=== PATIENT | male | born 1950 | race African-American/Black ===

== ENCOUNTER 2019-01-14 18:58 | Inpatient (IN) ==
[2019-01-14] MEDS ORDERED: SODIUM CHLORIDE 0.9% 1,450 ML IV ONE (19:31)
[2019-01-14] MEDS ORDERED: PANTOPRAZOLE 40 MG VIAL IV STA (19:31)
[2019-01-14] MEDS ORDERED: ONDANSETRON 4 MG/2 ML VIAL IV STA (19:31)
[2019-01-14 19:52] LABS: Basophils # 0.1 10*3/uL (0.0-0.2); Basophils % 1.2 % (0.0-0.8); Hematocrit 43.3 VOL% (42.0-52.0); Hemoglobin 14.3 GM/DL (14.0-18.0); Immature Granulocytes % 0.3 %; Immature Granulocytes Absolute 0.02 #; Lymphocytes # 0.6 10*3/uL (1.4-4.0); Lymphocytes % 10.1 % (21.2-54.2); Mean Corpuscular Volume 81.9 FL (87-102); Mean Platelet Volume 10.6 FL (9.6-12.0); Monocytes % 12.5 % (1.7-12.7); Neutrophils % 75.9 % (38.7-73.9); Platelet Count 234 T/CUMM (130-400); Red Blood Count 5.29 MC/CUMM (3.8-5.5); Red Cell Distribution Width 15.4 % (9.3-17.3); White Blood Count 5.9 T/CUMM (4-12)
[2019-01-14 20:25] LABS: Alanine Aminotransferase 21 U/L (16-61); Albumin 2.6 G/DL (3.4-5.0); Alkaline Phosphatase 82 U/L (45-117); Amylase 77 U/L (25-115); Aspartate Amino Transferase 18 U/L (0-37); Blood Urea Nitrogen 86 MG/DL (7-18); Calcium 8.3 MG/DL (8.5-10.1); Estimated Glom Filtration Rate 18 ML/MIN; Glucose 120 MG/DL (74-106); Osmolality,Calculated 290.5 MOS/KG (273-304); Total Protein 7.3 G/DL (6.4-8.3); Troponin I < 0.015 NG/ML (0.00-0.045)
[2019-01-14 20:36] LABS: Band Neutrophils 23 % (0-10); Lymphocytes 10 % (20-55); Metamyelocytes 10 %; Myelocytes 1 %; Segmented Neutrophils 49 % (50-85); Total Cells Counted 100
[2019-01-14 20:37] LABS: Microcytosis 1+; Platelet Estimate Normal
[2019-01-14 20:48] LABS: PT Patient Result 10.8 SECS (9.6-12.2); Partial Thromboplastin Time 33.2 SECS (20.8-36.0)
[2019-01-14] MEDS ORDERED: PIPERACILLIN/TAZOBACTAM 3,375 MG VIAL IV ONE (20:59)
[2019-01-14] MEDS: PIPERACILLIN/TAZOBACTAM 3,375 MG in SODIUM CHLORIDE 0.9% 100 ML IV SCH (21:05)
[2019-01-14] MEDS ORDERED: ONDANSETRON 4 MG/2 ML VIAL IV PRN (21:41)
[2019-01-14] MEDS ORDERED: ACETAMINOPHEN 325 MG TABLET PO PRN (21:41)
[2019-01-14] MEDS ORDERED: ALBUTEROL 2.5 MG/3 ML NEB RESP TX PRN (21:47)
[2019-01-14 22:09] LABS: Amorphous Crystals,Urine Occasional /HPF (Few); Apearance,Urine CLOUDY (Clear); Bilirubin,Urine Negative (Negative); Blood, Urine Moderate mg/dL (Negative); Glucose,Urine (UA) Negative (Negative); Hyaline Casts,Urine 62 /LPF (0-3); Ketones,Urine Negative (Negative); Mucus,Urine Occasional /LPF (Occasional); Nitrite,Urine Negative (Negative); Protein,Urine 30 MG/DL; RBC,Urine 9 /HPF (0-4); Sperm,Urine Occasional /HPF (Negative); Squamous Epithelial Cell,Urine Occasional /HPF (0-10); Urine Color Amber (Yellow); Urine Specific Gravity 1.017 (1.001-1.035); Urine Urobilinogen < 2.0 EU/DL (0.2-1.0); WBC,Urine 4 /HPF (0-6)
[2019-01-15 01:57] LABS: Albumin 2.2 G/DL (3.4-5.0); Bilirubin,Total 1.5 MG/DL (0.2-1.0); Calcium 7.9 MG/DL (8.5-10.1); Osmolality,Calculated 288.7 MOS/KG (273-304); Total Protein 6.5 G/DL (6.4-8.3)
[2019-01-15 02:01] LABS: Basophils # 0.1 10*3/uL (0.0-0.2); Eosinophils % 0.2 % (0.00-10.9); Hemoglobin 13.2 GM/DL (14.0-18.0); Immature Granulocytes % 0.3 %; Immature Granulocytes Absolute 0.02 #; Lymphocytes # 0.4 10*3/uL (1.4-4.0); Lymphocytes % 6.4 % (21.2-54.2); Mean Corpuscular HGB Conc 34.7 GM/DL (32-36); Mean Corpuscular Volume 79.8 FL (87-102); Mean Platelet Volume 11.2 FL (9.6-12.0); Neutrophils % 74.1 % (38.7-73.9); Platelet Count 204 T/CUMM (130-400); Red Blood Count 4.76 MC/CUMM (3.8-5.5); Red Cell Distribution Width 15.2 % (9.3-17.3); White Blood Count 6.1 T/CUMM (4-12)
[2019-01-15 02:41] LABS: Band Neutrophils 29 % (0-10); Lymphocytes 11 % (20-55); Myelocytes 1 %; Segmented Neutrophils 40 % (50-85); Total Cells Counted 100
[2019-01-15 02:42] LABS: Acanthocytes Few; Anisocytosis 1+
[2019-01-15 02:43] LABS: Platelet Estimate Normal
[2019-01-15] MEDS: LACTATED RINGERS 1,000 ML IV SCH ×2 (02:52→08:58)
[2019-01-15] MEDS ORDERED: SODIUM CHLORIDE 0.9% 1,000 ML IV ONE ×2 (04:47→09:10)
[2019-01-15] MEDS: PIPERACILLIN/TAZOBACTAM 3,375 MG in SODIUM CHLORIDE 0.9% 100 ML IV SCH (05:30)
[2019-01-15] MEDS: HEPARIN 5,000 UNIT/1 ML VIAL SUBCUT SCH ×2 (05:31→16:25)
[2019-01-15] MEDS: TIMOLOL 0.5% OPH SOLN 5 ML BOTTLE BOTH EYES SCH ×2 (08:57→20:47)
[2019-01-15] MEDS: FLUTICASONE 50 MCG NASAL SPRAY 16 GM BOTTLE BOTH NARES SCH (08:58)
[2019-01-15] MEDS: PANTOPRAZOLE 40 MG VIAL IV SCH ×2 (08:58→20:46)
[2019-01-15] MEDS: CIPROFLOXACIN INJ 400 MG in PREMIX 1 EACH IV SCH (10:11)
[2019-01-15] MEDS: SODIUM CHLORIDE 0.9% 1,000 ML IV SCH ×2 (12:23→17:18)
[2019-01-15] MEDS: metroNIDAZOLE INJ 500 MG in PREMIX 1 EACH IV SCH ×3 (12:39→21:29)
[2019-01-15] MEDS: LATANOPROST 0.005% OPH SOLN 2.5 ML BOTTLE BOTH EYES SCH (20:47)
[2019-01-16] MEDS: SODIUM CHLORIDE 0.9% 1,000 ML IV SCH ×2 (02:49→07:23)
[2019-01-16] MEDS: metroNIDAZOLE INJ 500 MG in PREMIX 1 EACH IV SCH ×4 (04:43→23:08)
[2019-01-16] MEDS: HEPARIN 5,000 UNIT/1 ML VIAL SUBCUT SCH ×2 (04:43→16:14)
[2019-01-16 06:38] LABS: Basophils # 0.1 10*3/uL (0.0-0.2); Basophils % 0.7 % (0.0-0.8); Eosinophils % 0.1 % (0.00-10.9); Hematocrit 33.9 VOL% (42.0-52.0); Hemoglobin 11.4 GM/DL (14.0-18.0); Immature Granulocytes Absolute 0.16 #; Lymphocytes # 0.6 10*3/uL (1.4-4.0); Lymphocytes % 3.6 % (21.2-54.2); Mean Corpuscular HGB Conc 33.6 GM/DL (32-36); Mean Corpuscular Volume 80.3 FL (87-102); Monocytes % 14.9 % (1.7-12.7); Neutrophils % 79.7 % (38.7-73.9); Platelet Count 203 T/CUMM (130-400); Red Blood Count 4.22 MC/CUMM (3.8-5.5); Red Cell Distribution Width 15.4 % (9.3-17.3)
[2019-01-16 07:07] LABS: Band Neutrophils 40 % (0-10); Lymphocytes 2 % (20-55); Platelet Estimate Normal; Segmented Neutrophils 44 % (50-85); Total Cells Counted 100
[2019-01-16 07:08] LABS: Anisocytosis 2+; Macrocytosis Slight; Poikilocytosis 2+
[2019-01-16 07:09] LABS: Burr Cells 1+
[2019-01-16 07:19] LABS: Calcium 7.4 MG/DL (8.5-10.1); Osmolality,Calculated 288.1 MOS/KG (273-304); Thyroid Stimulating Hormone 1.82 uIU/ml (0.358-3.74)
[2019-01-16] MEDS: FLUTICASONE 50 MCG NASAL SPRAY 16 GM BOTTLE BOTH NARES SCH (08:47)
[2019-01-16] MEDS: SODIUM CHLOR 0.9% KCL 40 MEQ 40 MEQ/1,000 ML BAG IV SCH ×2 (08:51→23:08)
[2019-01-16] MEDS: TIMOLOL 0.5% OPH SOLN 5 ML BOTTLE BOTH EYES SCH ×2 (08:52→20:51)
[2019-01-16] MEDS: PANTOPRAZOLE 40 MG VIAL IV SCH ×2 (08:52→20:51)
[2019-01-16] MEDS: POTASSIUM CHLORIDE 20 MEQ TABLET PO PRN ×4 (08:52→16:37)
[2019-01-16] MEDS: CIPROFLOXACIN INJ 400 MG in PREMIX 1 EACH IV SCH ×3 (08:53→20:59)
[2019-01-16] MEDS ORDERED: SODIUM PHOSPHATE INJ 30 MMOL in SODIUM CHLORIDE 0.9% 250 ML IV ONE (15:00)
[2019-01-16] MEDS: LATANOPROST 0.005% OPH SOLN 2.5 ML BOTTLE BOTH EYES SCH (20:51)
[2019-01-17] MEDS: metroNIDAZOLE INJ 500 MG in PREMIX 1 EACH IV SCH ×3 (04:52→22:09)
[2019-01-17] MEDS: HEPARIN 5,000 UNIT/1 ML VIAL SUBCUT SCH ×2 (05:45→17:39)
[2019-01-17] MEDS: SODIUM CHLOR 0.9% KCL 40 MEQ 40 MEQ/1,000 ML BAG IV SCH (05:45)
[2019-01-17 05:49] LABS: Calcium 7.5 MG/DL (8.5-10.1); Osmolality,Calculated 284.8 MOS/KG (273-304)
[2019-01-17] MEDS ORDERED: LACTATED RINGERS 1,000 ML IV SCH (08:00)
[2019-01-17] MEDS ORDERED: ONDANSETRON 4 MG/2 ML VIAL ONE (09:00)
[2019-01-17] MEDS ORDERED: ETOMIDATE 20 MG/10 ML VIAL IV ONE (09:00)
[2019-01-17] MEDS ORDERED: PROPOFOL 200 MG/20 ML VIAL IV ONE (09:00)
[2019-01-17] MEDS ORDERED: LIDOCAINE 2% 5 ML VIAL ONE (09:00)
[2019-01-17] MEDS ORDERED: SODIUM PHOSPHATE INJ 30 MMOL in SODIUM CHLORIDE 0.9% 250 ML IV ONE ×2 (11:00→20:00)
[2019-01-17] MEDS: SODIUM CHLORIDE 0.9% 1,000 ML IV SCH (11:40)
[2019-01-17] MEDS: PANTOPRAZOLE 40 MG VIAL IV SCH (11:41)
[2019-01-17] MEDS: TIMOLOL 0.5% OPH SOLN 5 ML BOTTLE BOTH EYES SCH ×2 (11:44→21:41)
[2019-01-17] MEDS: FLUTICASONE 50 MCG NASAL SPRAY 16 GM BOTTLE BOTH NARES SCH (11:45)
[2019-01-17] MEDS: CIPROFLOXACIN INJ 400 MG in PREMIX 1 EACH IV SCH (15:51)
[2019-01-17] MEDS: LATANOPROST 0.005% OPH SOLN 2.5 ML BOTTLE BOTH EYES SCH (21:40)
[2019-01-17] MEDS: PANTOPRAZOLE 40 MG TABLET PO SCH (21:40)
[2019-01-17] MEDS: POTASSIUM PHOS/SOD PHOS POWDER 250 MG PACK PO SCH (21:40)
[2019-01-18] MEDS: CIPROFLOXACIN INJ 400 MG in PREMIX 1 EACH IV SCH (03:00)
[2019-01-18] MEDS: metroNIDAZOLE INJ 500 MG in PREMIX 1 EACH IV SCH ×2 (04:02→09:45)
[2019-01-18] MEDS: HEPARIN 5,000 UNIT/1 ML VIAL SUBCUT SCH (04:37)
[2019-01-18 05:43] LABS: Basophils % 0.1 % (0.0-0.8); Eosinophils % 0.3 % (0.00-10.9); Hematocrit 32.2 VOL% (42.0-52.0); Hemoglobin 10.8 GM/DL (14.0-18.0); Immature Granulocytes Absolute 0.12 #; Lymphocytes # 1.3 10*3/uL (1.4-4.0); Lymphocytes % 11.4 % (21.2-54.2); Mean Corpuscular HGB Conc 33.5 GM/DL (32-36); Mean Corpuscular Volume 81.5 FL (87-102); Mean Platelet Volume 10.9 FL (9.6-12.0); Monocytes % 11.6 % (1.7-12.7); Neutrophils % 75.6 % (38.7-73.9); Platelet Count 206 T/CUMM (130-400); Red Blood Count 3.95 MC/CUMM (3.8-5.5); Red Cell Distribution Width 16.1 % (9.3-17.3); White Blood Count 11.6 T/CUMM (4-12)
[2019-01-18] MEDS: SODIUM CHLORIDE 0.9% 1,000 ML IV SCH (05:56)
[2019-01-18 06:04] LABS: Calcium 7.5 MG/DL (8.5-10.1); Osmolality,Calculated 279.3 MOS/KG (273-304)
[2019-01-18 06:12] LABS: Lymphocytes 12 % (20-55); Segmented Neutrophils 76 % (50-85); Total Cells Counted 100
[2019-01-18 06:13] LABS: Hypochromasia Slight; Platelet Estimate Normal
[2019-01-18 06:15] LABS: Acanthocytes Few; Burr Cells 1+; Poikilocytosis 1+; Schistocytes Few
[2019-01-18] MEDS: POTASSIUM PHOS/SOD PHOS POWDER 250 MG PACK PO SCH (08:17)
[2019-01-18] MEDS: TIMOLOL 0.5% OPH SOLN 5 ML BOTTLE BOTH EYES SCH (08:17)
[2019-01-18] MEDS: FLUTICASONE 50 MCG NASAL SPRAY 16 GM BOTTLE BOTH NARES SCH (08:17)
[2019-01-18] MEDS: POTASSIUM CHLORIDE 20 MEQ TABLET PO PRN ×2 (08:17→10:23)
[2019-01-18] MEDS: PANTOPRAZOLE 40 MG TABLET PO SCH (08:17)
[2019-01-18] MEDS ORDERED: POTASSIUM BICARB EFFERVESCENT 25 MEQ TABLET PO ONE (10:32)
[2019-01-18 12:51] VITALS: BP 138/76
== END 2019-01-18 13:30 | disposition home health service (06) | DRG 683 ==
LOC: EDUNIT# → N.ED 18:58 → N.EDINP 21:41 → N.3E 23:53
PROVIDERS: ADMIT Internal Medicine; ATTEND Internal Medicine

== ENCOUNTER 2020-04-17 02:27 | Inpatient (IN) ==
[2020-04-17 03:00] LABS: Basophils # 0.1 10*3/uL (0.0-0.2); Basophils % 0.4 % (0.0-0.8); Eosinophils % 0.2 % (0.00-10.9); Hematocrit 48.3 VOL% (42.0-52.0); Hemoglobin 16.4 GM/DL (14.0-18.0); Immature Granulocytes % 0.6 %; Immature Granulocytes Absolute 0.08 #; Lymphocytes # 1.1 10*3/uL (1.4-4.0); Lymphocytes % 9.1 % (21.2-54.2); Mean Corpuscular Volume 80.8 FL (87-102); Mean Platelet Volume 10.8 FL (9.6-12.0); Monocytes % 13.3 % (1.7-12.7); Neutrophils % 76.4 % (38.7-73.9); Platelet Count 244 T/CUMM (130-400); Red Blood Count 5.98 MC/CUMM (3.8-5.5); Red Cell Distribution Width 15.8 % (9.3-17.3); White Blood Count 12.4 T/CUMM (4-12)
[2020-04-17] MEDS ORDERED: SODIUM CHLORIDE 0.9% 1,000 ML IV STA (03:01)
[2020-04-17 03:59] LABS: Albumin 3.3 G/DL (3.4-5.0); Bilirubin,Total 0.7 MG/DL (0.2-1.0); Calcium 9.9 MG/DL (8.5-10.1)
[2020-04-17 04:00] LABS: Osmolality,Calculated 292.8 MOS/KG (273-304); Potassium 3.8 MMOL/L (3.5-5.1)
[2020-04-17 04:08] LABS: Band Neutrophils 1 % (0-10); Hypochromasia Slight; Lymphocytes 8 % (20-55); Microcytosis 1+; Platelet Estimate Normal; Segmented Neutrophils 82 % (50-85); Total Cells Counted 100
[2020-04-17 04:09] LABS: Polychromasia Slight; Tear Drop Cells Few
[2020-04-17] MEDS ORDERED: DEXTROSE 50% 25 GM/50 ML VIAL IV PRN (04:25)
[2020-04-17] MEDS ORDERED: GLUCAGON 1 MG VIAL IM PRN (04:25)
[2020-04-17] MEDS ORDERED: ACETAMINOPHEN 325 MG TABLET PO PRN (04:25)
[2020-04-17] MEDS ORDERED: ENOXAPARIN 30 MG/0.3 ML SYRINGE SUBCUT SCH (06:00)
[2020-04-17] MEDS: SODIUM CHLORIDE 0.9% 1,000 ML IV SCH ×2 (08:30→18:02)
[2020-04-17 08:34] LABS: Basophils % 0.2 % (0.0-0.8); Hematocrit 48.1 VOL% (42.0-52.0); Hemoglobin 15.8 GM/DL (14.0-18.0); Immature Granulocytes % 1.1 %; Immature Granulocytes Absolute 0.13 #; Lymphocytes % 7.8 % (21.2-54.2); Mean Corpuscular HGB Conc 32.8 GM/DL (32-36); Mean Corpuscular Volume 82.4 FL (87-102); Mean Platelet Volume 11.1 FL (9.6-12.0); Monocytes % 12.1 % (1.7-12.7); Neutrophils % 78.8 % (38.7-73.9); Platelet Count 246 T/CUMM (130-400); Red Blood Count 5.84 MC/CUMM (3.8-5.5); Red Cell Distribution Width 15.8 % (9.3-17.3); White Blood Count 12.2 T/CUMM (4-12)
[2020-04-17] MEDS: ONDANSETRON 4 MG/2 ML VIAL IV PRN (08:35)
[2020-04-17 08:51] LABS: Albumin 3.1 G/DL (3.4-5.0); Calcium 9.3 MG/DL (8.5-10.1); Osmolality,Calculated 294.5 MOS/KG (273-304); Potassium 3.7 MMOL/L (3.5-5.1); Total Protein 8.4 G/DL (5.0-7.5)
[2020-04-17 08:58] LABS: Anisocytosis Slight; Band Neutrophils 24 % (0-10); Lymphocytes 10 % (20-55); Macrocytosis Slight; Metamyelocytes 2 %; Platelet Estimate Normal; Segmented Neutrophils 53 % (50-85); Total Cells Counted 100
[2020-04-17] MEDS ORDERED: PANTOPRAZOLE 40 MG TABLET PO SCH ×2 (09:00)
[2020-04-17] MEDS: traMADol 50 MG TABLET PO PRN ×2 (14:12→20:02)
[2020-04-17] MEDS ORDERED: SODIUM CHLORIDE 0.9% 1,000 ML IV ONE (15:26)
[2020-04-17] MEDS: DEXTROSE 5% NACL 0.45% 1,000 ML IV SCH (18:33)
[2020-04-17] MEDS: PANTOPRAZOLE 40 MG VIAL IV SCH (21:50)
[2020-04-18] MEDS: DEXTROSE 5% NACL 0.45% 1,000 ML IV SCH ×3 (04:45→20:24)
[2020-04-18 05:29] LABS: Basophils % 0.3 % (0.0-0.8); Eosinophils % 0.2 % (0.00-10.9); Hematocrit 37.4 VOL% (42.0-52.0); Immature Granulocytes % 0.3 %; Immature Granulocytes Absolute 0.04 #; Lymphocytes # 0.7 10*3/uL (1.4-4.0); Lymphocytes % 5.4 % (21.2-54.2); Mean Corpuscular HGB Conc 33.4 GM/DL (32-36); Mean Corpuscular Volume 82.2 FL (87-102); Monocytes % 14.2 % (1.7-12.7); Neutrophils % 79.6 % (38.7-73.9); Platelet Count 202 T/CUMM (130-400); Red Cell Distribution Width 15.2 % (9.3-17.3); White Blood Count 12.2 T/CUMM (4-12)
[2020-04-18 05:35] LABS: Red Blood Count 4.55 MC/CUMM (3.8-5.5)
[2020-04-18 05:36] LABS: Hemoglobin 12.5 GM/DL (14.0-18.0)
[2020-04-18 05:45] LABS: Albumin 2.1 G/DL (3.4-5.0); Bilirubin,Total 1.4 MG/DL (0.2-1.0); Calcium 8.2 MG/DL (8.5-10.1); Osmolality,Calculated 296.8 MOS/KG (273-304); Potassium 3.6 MMOL/L (3.5-5.1); Total Protein 6.2 G/DL (5.0-7.5)
[2020-04-18 07:25] LABS: Segmented Neutrophils 68 % (50-85); Total Cells Counted 100
[2020-04-18 07:26] LABS: Anisocytosis 1+; Band Neutrophils 9 % (0-10); Lymphocytes 7 % (20-55); Macrocytosis 1+; Platelet Estimate Normal
[2020-04-18] MEDS ORDERED: ALBUTEROL 2.5 MG/3 ML NEB RESP TX PRN (08:29)
[2020-04-18] MEDS ORDERED: SODIUM CHLORIDE 0.9% 500 ML IV ONE (08:30)
[2020-04-18] MEDS: LEVOFLOXACIN INJ 500 MG in PREMIX 1 EACH IV SCH (09:30)
[2020-04-18] MEDS: PANTOPRAZOLE 40 MG VIAL IV SCH ×2 (09:30→21:22)
[2020-04-18] MEDS: MORPHINE 4 MG/1 ML VIAL IV PRN ×3 (09:36→21:22)
[2020-04-18] MEDS: ONDANSETRON 4 MG/2 ML VIAL IV PRN (09:37)
[2020-04-18 11:59] LABS: Ferritin 539.8 ng/ml (26-388)
[2020-04-18 12:32] LABS: Folate 8.2 NG/ML (5.38-24.0)
[2020-04-18 14:52] LABS: Hematocrit 37.5 VOL% (42.0-52.0); Hemoglobin 12.5 GM/DL (14.0-18.0)
[2020-04-18] MEDS: LATANOPROST 0.005% OPH SOLN 2.5 ML BOTTLE BOTH EYES SCH (21:25)
[2020-04-19] MEDS: DEXTROSE 5% NACL 0.45% 1,000 ML IV SCH (04:06)
[2020-04-19] MEDS: MORPHINE 4 MG/1 ML VIAL IV PRN (04:17)
[2020-04-19 05:48] LABS: Basophils % 0.2 % (0.0-0.8); Hematocrit 36.6 VOL% (42.0-52.0); Hemoglobin 11.8 GM/DL (14.0-18.0); Immature Granulocytes % 0.7 %; Immature Granulocytes Absolute 0.12 #; Lymphocytes % 5.3 % (21.2-54.2); Mean Corpuscular HGB Conc 32.2 GM/DL (32-36); Mean Corpuscular Volume 84.7 FL (87-102); Mean Platelet Volume 10.7 FL (9.6-12.0); Monocytes % 14.6 % (1.7-12.7); Neutrophils % 79.2 % (38.7-73.9); Platelet Count 208 T/CUMM (130-400); Red Blood Count 4.32 MC/CUMM (3.8-5.5); Red Cell Distribution Width 15.8 % (9.3-17.3); White Blood Count 18.2 T/CUMM (4-12)
[2020-04-19 06:10] LABS: Albumin 1.8 G/DL (3.4-5.0); Bilirubin,Total 0.4 MG/DL (0.2-1.0); Calcium 7.9 MG/DL (8.5-10.1); Osmolality,Calculated 289.4 MOS/KG (273-304); Potassium 2.9 MMOL/L (3.5-5.1); Total Protein 5.8 G/DL (5.0-7.5)
[2020-04-19 06:11] LABS: Band Neutrophils 2 % (0-10); Hypochromasia 1+; Lymphocytes 1 % (20-55); Platelet Estimate Adequate; Segmented Neutrophils 83 % (50-85); Total Cells Counted 100
[2020-04-19 07:16] LABS: Total Protein (Chem) 8.7 G/DL (6.4-8.3)
[2020-04-19 08:22] LABS: Albumin (SPE) 4.5 G/DL (3.2-5.3); Albumin (SPE) Rel % 51.5 %; Alpha 1 (SPE) 0.3 G/DL (0.1-0.4); Alpha 1 (SPE) Rel % 3.7 %; Alpha 2 (SPE) 1.4 G/DL (0.4-1.0); Alpha 2 (SPE) Rel % 16.4 %; Beta (SPE) 0.9 G/DL (0.5-1.1); Gamma (SPE) 1.6 G/DL (0.7-1.7); Gamma (SPE) Rel % 18.4 %
[2020-04-19] MEDS ORDERED: FERRIC GLUCONATE COMPLEX 125 MG in SODIUM CHLORIDE 0.9% 100 ML IV ONE (09:00)
[2020-04-19] MEDS: DEXT 5% NACL 0.45% KCL 40 MEQ 40 MEQ/1,000 ML BAG IV SCH (09:35)
[2020-04-19] MEDS: metroNIDAZOLE INJ 500 MG in PREMIX 1 EACH IV SCH ×2 (09:35→16:55)
[2020-04-19] MEDS: PANTOPRAZOLE 40 MG VIAL IV SCH ×2 (09:35→21:33)
[2020-04-19] MEDS ORDERED: POTASSIUM CHLORIDE 20 MEQ TABLET PO ONE (10:39)
[2020-04-19] MEDS ORDERED: POTASSIUM CHLORIDE 20 MEQ TABLET PO SCH (21:00)
[2020-04-19] MEDS: LATANOPROST 0.005% OPH SOLN 2.5 ML BOTTLE BOTH EYES SCH (21:33)
[2020-04-20] MEDS: DEXT 5% NACL 0.45% KCL 40 MEQ 40 MEQ/1,000 ML BAG IV SCH ×3 (00:11→18:05)
[2020-04-20] MEDS: metroNIDAZOLE INJ 500 MG in PREMIX 1 EACH IV SCH ×4 (00:14→23:57)
[2020-04-20 04:56] LABS: Basophils % 0.2 % (0.0-0.8); Eosinophils % 0.1 % (0.00-10.9); Hemoglobin 10.3 GM/DL (14.0-18.0); Immature Granulocytes % 0.9 %; Immature Granulocytes Absolute 0.12 #; Lymphocytes # 0.9 10*3/uL (1.4-4.0); Lymphocytes % 6.8 % (21.2-54.2); Mean Corpuscular HGB Conc 32.2 GM/DL (32-36); Mean Corpuscular Volume 85.3 FL (87-102); Mean Platelet Volume 10.4 FL (9.6-12.0); Monocytes % 14.8 % (1.7-12.7); Neutrophils % 77.2 % (38.7-73.9); Platelet Count 203 T/CUMM (130-400); Red Blood Count 3.75 MC/CUMM (3.8-5.5); Red Cell Distribution Width 16.1 % (9.3-17.3); White Blood Count 13.8 T/CUMM (4-12)
[2020-04-20 05:20] LABS: Band Neutrophils 1 % (0-10); Lymphocytes 11 % (20-55); Segmented Neutrophils 75 % (50-85); Total Cells Counted 100
[2020-04-20 05:21] LABS: Burr Cells Slight; Hypochromasia 1+; Microcytosis 1+; Ovalocytes Slight; Platelet Estimate Adequate
[2020-04-20 05:25] LABS: Albumin 1.8 G/DL (3.4-5.0); Bilirubin,Total 0.5 MG/DL (0.2-1.0); Calcium 8.1 MG/DL (8.5-10.1); Osmolality,Calculated 283.4 MOS/KG (273-304); Total Protein 5.8 G/DL (5.0-7.5)
[2020-04-20] MEDS: PANTOPRAZOLE 40 MG VIAL IV SCH ×2 (09:03→20:54)
[2020-04-20] MEDS: LEVOFLOXACIN INJ 500 MG in PREMIX 1 EACH IV SCH (10:03)
[2020-04-20] MEDS: FERROUS GLUCONATE 324 MG TABLET PO SCH ×2 (12:25→20:54)
[2020-04-20] MEDS: LATANOPROST 0.005% OPH SOLN 2.5 ML BOTTLE BOTH EYES SCH (20:55)
[2020-04-21] MEDS: DEXT 5% NACL 0.45% KCL 40 MEQ 40 MEQ/1,000 ML BAG IV SCH ×3 (05:40→16:34)
[2020-04-21] MEDS: metroNIDAZOLE INJ 500 MG in PREMIX 1 EACH IV SCH ×3 (08:24→23:40)
[2020-04-21] MEDS: PANTOPRAZOLE 40 MG VIAL IV SCH (08:28)
[2020-04-21] MEDS: FERROUS GLUCONATE 324 MG TABLET PO SCH ×2 (08:28→20:28)
[2020-04-21 08:49] LABS: Basophils % 0.3 % (0.0-0.8); Eosinophils % 0.2 % (0.00-10.9); Hematocrit 31.5 VOL% (42.0-52.0); Hemoglobin 10.4 GM/DL (14.0-18.0); Immature Granulocytes % 0.9 %; Immature Granulocytes Absolute 0.11 #; Lymphocytes % 8.1 % (21.2-54.2); Mean Corpuscular Volume 82.2 FL (87-102); Mean Platelet Volume 10.3 FL (9.6-12.0); Monocytes % 15.5 % (1.7-12.7); Platelet Count 212 T/CUMM (130-400); Red Blood Count 3.83 MC/CUMM (3.8-5.5)
[2020-04-21 09:11] LABS: Band Neutrophils 4 % (0-10); Hypochromasia 1+; Lymphocytes 9 % (20-55); Segmented Neutrophils 75 % (50-85); Total Cells Counted 100
[2020-04-21 09:12] LABS: Burr Cells Slight; Microcytosis 1+
[2020-04-21 09:13] LABS: Acanthocytes Few; Albumin 1.7 G/DL (3.4-5.0); Bilirubin,Total 0.5 MG/DL (0.2-1.0); Calcium 7.8 MG/DL (8.5-10.1); Osmolality,Calculated 273.8 MOS/KG (273-304); Platelet Estimate Normal; Potassium 4.1 MMOL/L (3.5-5.1); Total Protein 5.9 G/DL (5.0-7.5)
[2020-04-21] MEDS: PANTOPRAZOLE 40 MG TABLET PO SCH (20:27)
[2020-04-21] MEDS: LATANOPROST 0.005% OPH SOLN 2.5 ML BOTTLE BOTH EYES SCH (21:33)
[2020-04-22] MEDS: DEXT 5% NACL 0.45% KCL 40 MEQ 40 MEQ/1,000 ML BAG IV SCH ×2 (02:52→11:05)
[2020-04-22 06:38] LABS: Basophils % 0.1 % (0.0-0.8); Eosinophils # 0.1 10*3/uL (0.0-0.87); Eosinophils % 0.4 % (0.00-10.9); Hematocrit 31.2 VOL% (42.0-52.0); Hemoglobin 10.2 GM/DL (14.0-18.0); Immature Granulocytes % 1.3 %; Immature Granulocytes Absolute 0.16 #; Lymphocytes # 1.2 10*3/uL (1.4-4.0); Mean Corpuscular HGB Conc 32.7 GM/DL (32-36); Mean Corpuscular Volume 83.2 FL (87-102); Monocytes % 13.8 % (1.7-12.7); Neutrophils % 74.4 % (38.7-73.9); Platelet Count 219 T/CUMM (130-400); Red Blood Count 3.75 MC/CUMM (3.8-5.5); Red Cell Distribution Width 16.1 % (9.3-17.3); White Blood Count 12.4 T/CUMM (4-12)
[2020-04-22 06:53] LABS: Osmolality,Calculated 274.7 MOS/KG (273-304); Potassium 4.3 MMOL/L (3.5-5.1)
[2020-04-22 07:02] LABS: Acanthocytes Few; Band Neutrophils 1 % (0-10); Hypochromasia 1+; Lymphocytes 12 % (20-55); Microcytosis 1+; Segmented Neutrophils 80 % (50-85); Target Cells Slight; Total Cells Counted 100
[2020-04-22 07:03] LABS: Platelet Estimate Normal
[2020-04-22] MEDS: FERROUS GLUCONATE 324 MG TABLET PO SCH ×2 (08:52→20:09)
[2020-04-22] MEDS: PANTOPRAZOLE 40 MG TABLET PO SCH ×2 (08:52→20:09)
[2020-04-22] MEDS: metroNIDAZOLE INJ 500 MG in PREMIX 1 EACH IV SCH ×2 (08:54→17:18)
[2020-04-22] MEDS ORDERED: COLCHICINE 0.6 MG CAPSULE PO ONE ×2 (09:55→11:00)
[2020-04-22] MEDS: LEVOFLOXACIN INJ 500 MG in PREMIX 1 EACH IV SCH (10:46)
[2020-04-22] MEDS: COLCHICINE 0.6 MG CAPSULE PO SCH (20:09)
[2020-04-22] MEDS: LATANOPROST 0.005% OPH SOLN 2.5 ML BOTTLE BOTH EYES SCH (22:16)
[2020-04-23] MEDS: metroNIDAZOLE INJ 500 MG in PREMIX 1 EACH IV SCH ×2 (00:16→09:33)
[2020-04-23 05:36] LABS: Basophils % 0.2 % (0.0-0.8); Eosinophils % 0.2 % (0.00-10.9); Hematocrit 32.5 VOL% (42.0-52.0); Hemoglobin 10.8 GM/DL (14.0-18.0); Immature Granulocytes % 1.5 %; Lymphocytes # 1.5 10*3/uL (1.4-4.0); Lymphocytes % 11.1 % (21.2-54.2); Mean Corpuscular HGB Conc 33.2 GM/DL (32-36); Mean Corpuscular Volume 81.7 FL (87-102); Mean Platelet Volume 10.2 FL (9.6-12.0); Monocytes % 11.1 % (1.7-12.7); Neutrophils % 75.9 % (38.7-73.9); Platelet Count 229 T/CUMM (130-400); Red Blood Count 3.98 MC/CUMM (3.8-5.5); Red Cell Distribution Width 16.1 % (9.3-17.3); White Blood Count 13.6 T/CUMM (4-12)
[2020-04-23 06:02] LABS: Calcium 8.1 MG/DL (8.5-10.1); Potassium 4.6 MMOL/L (3.5-5.1)
[2020-04-23 07:00] LABS: Schistocytes Few; Target Cells 1+
[2020-04-23 07:01] LABS: Elliptocytes Few; Hypochromasia Slight; Platelet Estimate Normal
[2020-04-23 07:02] LABS: Microcytosis Slight; Spherocytes Few
[2020-04-23] MEDS: COLCHICINE 0.6 MG CAPSULE PO SCH (09:07)
[2020-04-23] MEDS: PANTOPRAZOLE 40 MG TABLET PO SCH (09:08)
[2020-04-23] MEDS: FERROUS GLUCONATE 324 MG TABLET PO SCH (09:08)
[2020-04-23 11:47] VITALS: BP 146/76
== END 2020-04-23 12:21 | disposition home health service (06) | DRG 389 ==
LOC: EDBD → EDUNIT# → N.ED 02:27 → N.EDINP 04:25 → SUATTDRO 04:26 → N.EDINP 06:52 → N.TELES 07:07
PROVIDERS: ADMIT Internal Medicine; ATTEND Internal Medicine